=== PATIENT | female | born 1975 | race Caucasian/White ===

== ENCOUNTER 2018-12-06 10:54 | Day surgery (SDC) | payer OTHER ==
[2018-12-06] MEDS ORDERED: LR 1,000 ML IV ONE (11:22)
[2018-12-06] MEDS ORDERED: ceFAZolin 2 GM/DEXTROSE 100 ML IV ONE (11:32)
[2018-12-06] MEDS ORDERED: DEXAMETHASONE 10 MG/ML VIAL IV ONE (11:34)
--- NOTE | 2018-12-06 11:36 | PDHPUP ---
History & Physical Update H&P update statement: This history and physical update is based on an assessment of the patient which was completed after admission or registration (within 24 hours), but prior to the surgery/procedure. H&P update: H&P reviewed & patient examined, no change in patient's condition since H&P completed
[2018-12-06] MEDS ORDERED: BACITRACIN ZINC 0.5 OZ OINTTUBE TP ONE ×2 (11:41→14:34)
[2018-12-06] MEDS ORDERED: LIDOCAINE 1% 300 MG/30 ML SDV ONE (11:41)
[2018-12-06] MEDS ORDERED: BUPIVACAINE 0.5% 30 ML SDV ONE (11:42)
[2018-12-06] MEDS ORDERED: MIDAZOLAM 2 MG/2 ML VIAL IVP ONE (12:02)
--- NOTE | 2018-12-06 12:03 | PDANEPAE ---
ANE History of Present Illness here for abdominoplasty and VHR ANE Past Medical History - Cardiovascular History Hx Hypertension: No Hx Arrhythmias: No Hx Chest Pain: No Hx Coronary Artery / Peripheral Vascular Disease: No Hx CHF / Valvular Disease: No Hx Palpitations: No - Pulmonary History Hx COPD: No Hx Asthma/Reactive Airway Disease: No Hx Recent Upper Respiratory Infection: No Hx Oxygen in Use at Home: No Hx Sleep Apnea: No Sleep Apnea Screening Result - Last Documented: Negative - Neurologic History Hx Cerebrovascular Accident: No Hx Seizures: No Hx Dementia: No - Endocrine History Hx Diabetes: No Endocrine History Comment: HYPERGLYCEMIC W/ - Renal History Hx Renal Disorders: No - Liver History Hx Hepatic Disorders: No - Neurological & Psychiatric Hx Hx Neurological and Psychiatric Disorders: Yes Neurological / Psychiatric History Comment: N/T related to anxiety. Severe anxiety r/t surgery - Cancer History Hx Cancer: No - Congenital Disorder History Hx Congenital Disorders: No - GI History Hx Gastrointestinal Disorders: No - Other Health History Other Health History: none - Chronic Pain History Chronic Pain: Yes (hemorroid) - Surgical History Prior Surgeries: double hernia repair 2013. . L hip reconstruction ANE Review of Systems Review of Systems: - Exercise capacity METS (RN): 5 METS ANE Patient History - Allergies Allergies/Adverse Reactions: milk [Milk] Allergy (Mild, Verified 11/12/18 10:37) Rash zolpidem tartrate [From Ambien] Allergy (Verified 11/12/18 10:37) Other-Enter Comments - Home Medications Home medications: home medication list seen and reviewed Home Medications: Collagen Plus Vit C Capsule 11/12/18 [Last Taken 12/03/18] - NPO status NPO Status: no food or drink >8 hours NPO Since - Liquids (Date): 12/06/18 NPO Since - Liquids (Time): 09:00 NPO Since - Solids (Date): 12/05/18 NPO Since - Solids (Time): 21:00 - Anes Hx Anes Hx: no prior problems - Smoking Hx Smoking Status: Never smoked - Family Anes Hx Family Hx Anesthesia Complications: maternal grandmother in surgery ANE Labs/Vital Signs - Vital Signs Vital Signs: reviewed preoperatively; see RN documention for details Blood Pressure: 121/79 Heart Rate: 95 Respiratory Rate: 10 O2 Sat (%): 99 Height: 161.93 cm Weight: 52.163 kg ANE Physical Exam - Airway Neck exam: FROM Mallampati Score: Class 1 Mouth exam: normal dental/mouth exam - Pulmonary Pulmonary: no respiratory distress - Cardiovascular Cardiovascular: regular rate and rhythym - ASA Status ASA Status: I ANE Anesthesia Plan Anesthesia Plan: general endotracheal anesthesia
[2018-12-06] MEDS ORDERED: PROPOFOL/EMULSION 500 MG/50 ML BOTTLE IV ONE ×2 (12:15→13:30)
[2018-12-06] MEDS ORDERED: EPINEPHrine 1 MG/ML INJ ONE (12:16)
[2018-12-06] MEDS ORDERED: fentaNYL 250 MCG/5 ML INJ ONE (12:26)
[2018-12-06] MEDS ORDERED: ROCURONIUM 50 MG/5 ML VIAL ONE (12:44)
[2018-12-06] MEDS ORDERED: DEXAMETHASONE 4 MG/ML VIAL IVP PRN (13:02)
[2018-12-06] MEDS ORDERED: NALOXONE HCL 0.4 MG/ML INJ IVP PRN (13:02)
[2018-12-06] MEDS ORDERED: fentaNYL 100 MCG/2 ML INJ IVP PRN (13:02)
[2018-12-06] MEDS ORDERED: ALBUTEROL 3 ML DEYVIAL IH PRN (13:02)
[2018-12-06] MEDS ORDERED: LR 500 ML IV PRN (13:02)
[2018-12-06] MEDS ORDERED: HYDROmorphONE/DILAUDID 1 MG/ML INJ IVP PRN (13:02)
[2018-12-06] MEDS ORDERED: PROMETHAZINE HCL 25 MG/ML INJ IVP PRN (13:02)
[2018-12-06] MEDS ORDERED: NS 500 ML IV PRN (13:02)
[2018-12-06] MEDS ORDERED: DIAZEPAM 10 MG/2 ML SYR IVP PRN (13:02)
[2018-12-06] MEDS ORDERED: ONDANSETRON 4 MG/2 ML VIAL IVP PRN (13:02)
[2018-12-06] MEDS ORDERED: PHENYLEPHRINE HCL 100 MCG/ML SYR ONE ×2 (14:11)
[2018-12-06] MEDS ORDERED: NEOSTIGMINE METHYLSULFATE 10 MG/10 ML MDV ONE (14:42)
[2018-12-06] MEDS ORDERED: GLYCOPYRROLATE 0.2 MG/1 ML VIAL ONE ×2 (14:42)
--- NOTE | 2018-12-06 14:44 | POSTOPPROG ---
Post Op Note Date of Operation: 12/06/18 Surgeon: Levi Childs Link Machine Operator: Chon BERMUDEZ Anesthesiologist: Rajesh Mckay MD Anesthesia: GET(General Endotracheal) Pre-op Diagnosis: Ventral hernia, rectus diastasis Post-op Diagnosis: Same Indication: Rectus diastasis Procedure: Abdominoplasty Findings: rectus diastasis Inf/Abcess present in the surg proc area at time of surgery?: No EBL: Minimal (40cc) Total fluids administered: 1000cc Complications: none Drains: Rigoberto Lam (JPs x 2)
--- NOTE | 2018-12-06 14:56 | POSTANESTH ---
Post Anesthetic Evaluation Cardiovascular Status: Normal, Stable Respiratory Status: Normal, Stable Level of Consciousness/Mental Status: Moderately Sleepy Pain Control: Adequate, Prn Tx Ordered Nausea/Vomiting Control: Adequate, Prn Tx Ordered Complications Possibly Related to Anesthesia: None Noted
--- NOTE | 2018-12-06 15:20 | GOP ---
[f rep st] OPERATIVE REPORT DATE OF OPERATION: 12/06/2018 SURGEON: Levi Childs MD AUTOMOTIVE STARTER REPAIRER: Chon Nicholas, cis[employer] certified internetwork expert. ANESTHESIA: General endotracheal. ANESTHESIOLOGIST: Rajesh Mckay MD. PREOPERATIVE DIAGNOSIS: Ventral hernia and rectus diastasis. POSTOPERATIVE DIAGNOSIS: Ventral hernia and rectus diastasis. PROCEDURE PERFORMED: Repair of rectus diastasis and abdominoplasty. FINDINGS: 1. Infraumbilical ventral hernia. 2. 7 cm wide rectus diastasis. SPECIMENS: None. ESTIMATED BLOOD LOSS: 40 cc. INDICATIONS: This is a 43-year-old female with severe diastasis after childbirth, as well as having narrow pelvic disease. She presents today for ventral hernia repair by Dr. Mere Simon, as well as a bdominoplasty performed by myself. DESCRIPTION OF PROCEDURE: Ms. Erazo was met in the preoperative area where the risks and benefits we re discussed with her at length which include, but are not limited to, infection, bleeding, hematoma, seroma, poor cosmesis, asymmetry, skin necrosis, belly button necrosis, and need for further revisio n surgeries. She is agreeable to this and therefore signed the operative consent. Prior to going in to the operating room she received 2 g of Ancef preoperatively for antibiotic prophylaxis. SCDs were placed for DVT prophylaxis and no urinary catheter was placed for this procedure due to the length. Time-out was performed prior to going to sleep where all in the room agreed upon the site and proced ures to be performed. We began with a lower abdominal incision, incised with a 10-blade. This was dissected down through s ubcutaneous tissue, down to the abdominal wall fascia. This was then raised up superiorly, as well a s laterally. We were able to expose the hernia. This part of the surgery will be dictated by my col league, Dr. Mere Simon. When she was finished with hernia repair we continued with our abdominoplas ty and rectus diastasis repair. This was dissected all the way up and the belly button was freed up with its stalk remaining from the skin and subcutaneous tissue. We continued to dissect superiorly t o expose the complete abdominal rectus muscles for repair. We then had the bed flexed and estimated the amount of skin to be taken off with the abdominoplasty procedure. This was taken off sharply wit h a 10-blade. We then proceeded with repair of the rectus diastasis. This was done with interrupted 0 Nurolon [id number] sutures and a running 2-0 V-Loc suture the entire length of the diastasis. Approximately 30 cc of 0.25% Marcaine plain was injected within the abdomen for pain control postop eratively. We then tailor tacked and stapled the skin closed after the bed was flexed again, to make sure that there were no contour irregularities and we had a good contour with the upper abdominal wa ll and the lower abdominal wall. Two 15-Bulgarian CECY drains were placed, 1 in the lower abdomen, 1 in t he upper abdomen. We then closed the abdominoplasty incision with 2-0 Vicryl closing the Shukri's fa scia, 3-0 Monocryl closing the subdermal and skin patrick closing the skin. We then cut a small slit where we had previous marked for the new bellybutton position. The bellybutton was then delivered t hrough this hole. This was sutured in with 3-0 Monocryl and 5-0 Fast gut. The count was correct at the end of the case. There were no immediate complications. She was dresse d with bacitracin, Xeroform, Kerlix, and ABD gauze pads, as well as an abdominal binder. She was awo delilah and taken to PACU in good condition. IV FLUIDS: 1000. COMPLICATIONS: None. URINE OUTPUT: Not recorded. /[id number]/MODL
[2018-12-06] MEDS: oxyCODONE IR 5 MG TAB PO PRN ×2 (16:21→17:23)
[2018-12-06 18:19] VITALS: BP 106/74
== END 2018-12-06 18:29 | disposition home or self-care (01) ==
LOC: FSGY 10:54
PROVIDERS: ATTEND Plastic Surgery
PROC: 0J080ZZ Alteration of Abdomen Subcutaneous Tissue and Fascia, Open Approach (ICD-10-PCS; principal; 2018-12-06 12:15)
PROC: 0WQF0ZZ Repair Abdominal Wall, Open Approach (ICD-10-PCS; 2018-12-06 12:15)
DX: K43.9 Ventral hernia without obstruction or gangrene (principal); M62.08 Separation of muscle (nontraumatic), other site
CPT/HCPCS: J0171; J0690; J2250; J2370; J2704; J3010